=== PATIENT | male | born 1970 | race Caucasian/White ===

== ENCOUNTER 2017-03-06 10:11 | Emergency (ER) | payer OTHER ==
[~2017-03-06] VITALS: Ht 177.8 cm; Wt 102.1 kg
--- NOTE | 2017-03-06 10:40 | ED GENERAL ADULT ---
History of Present Illness General Chief Complaint: General Adult Stated Complaint: HERE FOR 2ND RABIES SHOT Source: patient Exam Limitations: no limitations Vital Signs & Intake/Output Vital Signs & Intake/Output Vital Signs Date Time Temp Pulse Resp B/P B/P Pulse O2 O2 Flow FiO2 Mean Ox Delivery Rate 03/06 1042 97.7 74 18 126/76 96 Room Air Room Air Allergies Coded Allergies: No Known Allergies (03/06/17) Triage Nurses Notes Reviewed? yes Onset: Abrupt Duration: hour(s):, day(s): Timing: recent history Injury Environment: home No Modifying Factors: none HPI: 46-year-old male comes into emergency room for second rabies vaccine. Patient denies any pain. Positive bad exposure in the house. Denies any bites. Denies any symptoms. Patient was seen at [place] initially. Past History Travel History Traveled to [place] past 21 day No Medical History Any Pertinent Medical History? none Surgical History Surgical History: non-contributory Family History Hx Contributory? No Review of Systems Review of Systems Constitutional: Reports: no symptoms. EENTM: Reports: no symptoms. Respiratory: Reports: no symptoms. Cardiovascular: Reports: no symptoms. GI: Reports: no symptoms. Genitourinary: Reports: no symptoms. Musculoskeletal: Reports: no symptoms. Skin: Reports: no symptoms. Neurological/Psychological: Reports: no symptoms. Hematologic/Endocrine: Reports: no symptoms. Immunologic/Allergic: Reports: no symptoms. All Other Systems: Reviewed and Negative Physical Exam Physical Exam General Appearance: well developed/nourished Head: atraumatic Eyes: Bilateral: normal appearance. Ears, Nose, Throat: normal ENT inspection, hearing grossly normal Neck: normal inspection Respiratory: no respiratory distress Back: normal range of motion Extremities: normal range of motion Neurologic/Psych: awake, alert Skin: intact, normal color Core Measures ACS in differential dx? No CVA/TIA Diagnosis: No Severe Sepsis Present: No Septic Shock Present: No Progress Differential Diagnoses I considered the following diagnoses in my evaluation of the patient: Rabies, cellulitis, abscess, tetanus, Plan of Care: Patient will return as previously instructed. Days 3, and 7, and 14. this is day 3 for patient. Initial ED EKG: none Departure Departure Disposition: HOME OR SELF CARE Condition: Stable Clinical Impression Primary Impression: Rabies exposure Secondary Impressions: Exposure to bat without known bite Referrals: RAMIRO TORRESDEBBIE Additional Instructions: Return as previously instructed. Return on days 0, 3, 7, 14. Return if any other concerns worsening symptoms. Departure Forms: Customer Survey General Discharge Information Critical Care Note Critical Care Note Critical Care Time: non-applicable
[2017-03-06 10:42] VITALS: BP 126/76
== END 2017-03-06 11:17 ==
LOC: ERH 10:11
DX: Z23 Encounter for immunization (principal)
CPT/HCPCS: 90471; 99281

== ENCOUNTER 2017-03-17 20:31 | Emergency (ER) | payer BC ==
[~2017-03-17] VITALS: Ht 177.8 cm; Wt 102.1 kg
[2017-03-17 20:39] VITALS: BP 137/88
--- NOTE | 2017-03-17 20:43 | ED ANIMAL BITE/WOUND CHECK ---
History of Present Illness General Chief Complaint: General Adult Stated Complaint: RABIES VACCINE Source: patient, old records Exam Limitations: no limitations Vital Signs & Intake/Output Vital Signs & Intake/Output Vital Signs Date Time Temp Pulse Resp B/P B/P Pulse O2 O2 Flow FiO2 Mean Ox Delivery Rate 03/17 2039 97.2 76 18 137/88 96 Room Air Allergies Coded Allergies: No Known Allergies (03/06/17) Triage Note: PT TO TRIAGE FOR RABIES VACCINATION S/P FOUND BAT IN HIS HOUSE v1AILIZ AGO. Triage Nurses Notes Reviewed? yes Onset: Abrupt Duration: week(s): (2), better Timing: remote history No Modifying Factors: none Associated Symptoms: DENIES HPI: 46-year-old male presents for his final rabies vaccination after that exposure in the house he offers no complaints there is no pain no associated symptoms or modifying factors. No fever no chills (WAQAS LI) Past History Travel History Traveled to [place] past 21 day No Medical History Any Pertinent Medical History? see below for history Musculoskeletal: R HIP ARTHRITIS Surgical History Surgical History: non-contributory Psychosocial History What is your primary language Romanian Tobacco Use: Never used Family History Hx Contributory? No (WAQAS LI) Review of Systems Review of Systems Constitutional: Reports: see HPI. All Other Systems: Reviewed and Negative Comments Review of systems: See HPI, All other systems negative. Constitutional, no chills no fever, no malaise HEENT: no sore throat no congestion Cardiovascular: No chest pain , no palpitation Skin: no rashes, no change in skin Respiratory: no cough GI: No nausea no vomiting Muscle skeletal: No joint pain, no joint swelling, no back pain, no neck pain, Neurologic: no headache Psych: No stress Heme/endocrine: No bruising Immunology: No lymphadenopathy (WAQAS LI) Physical Exam Physical Exam General Appearance: well developed/nourished, no apparent distress, alert Comments: Well-developed well-nourished patient in no apparent distress. HEENT: Atraumatic, extraocular motion intact Neck: Supple, FROM Back: FROM Respiratory: No respiratory distress. Patient speaking in full complete sentences. Breath sounds clear to auscultation bilaterally: NO W/R/R Extremities: full range of motion Neuro: awake, alert, and oriented to person, place and time. There were no obvious focal neurologic abnormalities. Skin: Warm & dry;No appreciable rash on exposed skin Psych: Mood affect normal, normal memory normal judgment. (WAQAS LI) Progress Differential Diagnosis: abscess, cellulitis, rabies Plan of Care: Current Medications Sig/Luisa Start time Last Medication Dose Stop Time Status Admin Rabies Vaccine 1 SYR ONCE ONE 03/17 2045 AC (Rabies (Vaccine) 03/17 2046 Inj (1ML)) Patient clinically appears well this is his fourth rabies vaccination discussed with the plan of care they feel comfortable plan (WAQAS LI) Departure Departure Time of Disposition: 2045 Disposition: HOME OR SELF CARE Condition: Stable Clinical Impression Primary Impression: Rabies, need for prophylactic vaccination against Referrals: PATIENT HAS NO PRIMARY CARE DR (PCP/Family) Departure Forms: Customer Survey General Discharge Information (WAQAS LI) PA/PROFESSOR OF BIOSTATISTICS Co-Sign Statement Statement: ED Attending supervision documentation- I saw and evaluated the patient. I have also reviewed all the pertinent lab results and diagnostic results. I agree with the findings and the plan of care as documented in the PA's/PROFESSOR OF BIOSTATISTICS's documentation. x I have reviewed the ED Record and agree with the PA's/PROFESSOR OF BIOSTATISTICS's documentation. [] Additions or exceptions (if any) to the PAs/PROFESSOR OF BIOSTATISTICS's note and plan are summarized below: [] (TIMOTHY TORRES,JULIO)
== END 2017-03-17 21:14 ==
LOC: ERH 20:31
DX: Z23 Encounter for immunization (principal)
CPT/HCPCS: 90471; 99281